=== PATIENT | male | born 1980 | race African-American/Black ===

== ENCOUNTER 2020-09-17 00:55 | Emergency (ER) | END 2020-09-17 01:22 | disposition left against medical advice (07) | LOC: ERS 00:55 | DX: Z53.21 Procedure and treatment not carried out due to patient leaving prior to being seen by health care provider (principal) ==

== ENCOUNTER 2020-09-18 03:03 | Observation (INO) | payer SELFPAY ==
[2020-09-18 03:38] LABS: #Lymphocytes 1.9 thou/uL (1.20-3.40); #Neutrophils 4.3 thou/uL (1.40-6.50); %Basophils 0.5 % (0.0-1.0); %Eosinophils 0.6 % (0.0-10.0); %Lymphocytes 26.6 % (21.0-51.0); %Neutrophils 59.4 % (42.0-75.0); Mean Corpuscular HGB CONC 34.2 g/dL (32.0-36.0); Mean Corpuscular Hemoglobin 31.2 pg (27.0-31.0); Mean Corpuscular Volume 91.4 fL (78.0-98.0); Mean Platelet Volume 8.5 fL (7.4-10.4); Platelet Count 213 thou/uL (130-400); RBC Distribution Width 12.2 % (11.5-14.5); Red Blood Cell (RBC) Count 4.79 mill/uL (4.70-6.10); White Blood Cell (WBC) Count 7.3 thou/uL (4.8-10.8)
[2020-09-18] MEDS ORDERED: Ketorolac Tromethamine 30 MG/ML VIAL ONE (03:42)
[2020-09-18] MEDS ORDERED: Ondansetron PF 4 MG/2 ML Vial ONE (03:42)
[2020-09-18 04:00] LABS: Bilirubin Negative (Negative); Blood, Urine Negative (Negative); Clarity Clear (Clear); Glucose, Urine (Dipstick) Normal (Negative); Ketone, Urine Negative (Negative); Leukocyte Negative Leu/uL (Negative); Nitrite Negative (Negative); Protein, Urine (Dipstick) 10 mg/dL (Neg-Trace); pH, Urine 6.5 (5.0-9.0)
[2020-09-18 04:10] LABS: ALT (SGPT) 29 U/L (8-55); AST (SGOT) 25 U/L (5-34); Albumin 3.7 g/dL (3.5-5.0); Alkaline Phosphatase 67 U/L (40-110); Anion Gap 13 mmol/L (10-20); BUN (Urea Nitrogen) 7 mg/dL (8.9-20.6); Bilirubin, Total 1.2 mg/dL (0.2-1.2); Calc. Creatinine Clearance 0 mL/min (70-130); Calcium 8.6 mg/dL (7.8-10.44); Carbon Dioxide 23 mmol/L (22-29); Chloride 105 mmol/L (98-107); Glucose 157 mg/dL (70-105); Lipase 20 U/L (8-78); Potassium 3.7 mmol/L (3.5-5.1); Protein, Total 7.7 g/dL (6.0-8.3); Sodium 137 mmol/L (136-145)
[2020-09-18] MEDS ORDERED: Enoxaparin Sodium 60 MG/0.6 ML SYRINGE ONE (04:16)
[2020-09-18] MEDS ORDERED: Enoxaparin Sodium 100 MG/ML SYRINGE ONE (04:16)
[2020-09-18] MEDS ORDERED: Ondansetron PF 4 MG/2 ML Vial IVP PRN (05:07)
[2020-09-18] MEDS ORDERED: Calcium Carbonate 500 MG ChewTAB PO PRN (05:07)
[2020-09-18] MEDS ORDERED: Ondansetron ODT 4 MG TAB PO PRN (05:07)
[2020-09-18] MEDS ORDERED: Acetaminophen 325 MG TAB PO PRN (05:07)
--- NOTE | 2020-09-18 05:23 | PDOC.FPRHP ---
- History of Present Illness Chief Complaint: Abdominal Pain, N/V History of Present Illness: Patient is a 39-year-old male with past medical history of hypertension, hyperlipidemia, and diabetes presents with right lower quadrant that began suddenly 2 days ago. Pain sometimes radiates from the back to the front. The pa in was accompanied by persistent nausea and vomiting which prompted the patient to go to [facility] emergency department yesterday for evaluation. While there he was found on CT abdomen/pelvis to have a large wedge shaped perfusion defect & regional edema in right renal lower pole. The Perfusion defect extends to periphery of cortex. Patient was given Toradol and Dilaudid which relieved his pain. He was told he needed to be transferred but he left AMA due to his symptoms having resolved. Patient says his abdominal pain and vomiting returned earlier tonight and so decided to return to ER for further treatment. Patient was also diagnosed with COVID-19 yesterday. He denies constipation, diarrhea, fever, chills. Does endorse a cough and mild congestion that started around 09/13. He said he frequently gets the common cold this time of year and did not think he had COVID because he has been trying to stay isolated and wears a mask in public. Patient recently moved from [place], [place] and has not yet established a PCP in town. ED Course: Given Lovenox 160 mg, Toradol 15 mg, Zofran 8 mg in the ED. - Allergies/Adverse Reactions Allergies Allergy/AdvReac Type Severity Reaction Status Date / Time No Known Allergies Allergy Verified 09/18/20 06:28 - Home Medications Medication Instructions Recorded Confirmed Type Amlodipine [Norvasc] 5 mg PO BID 09/18/20 09/18/20 History Aspirin [Ecotrin Low Strength] 1 tab PO DAILY 09/18/20 09/18/20 History Rosuvastatin Calcium 40 mg PO DAILY 09/18/20 09/18/20 History cloNIDine [Catapres] 0.1 mg PO ASDIR 09/18/20 09/18/20 History metFORMIN HCl 500 mg PO BID 09/18/20 09/18/20 History - History PMHx: HTN, HLD, T2DM PSHx: denies FHx: Dad with CAD, Mother healthy, denies Cancer history Social: smokes 1/2 ppd, denies alcohol or illicit drug use - Review of Systems General: denies: fever/chills, fatigue Eyes: denies: vision changes ENT: reports: nasal congestion Respiratory: reports: cough. denies: shortness of breath Cardiovascular: denies: chest pain, palpitation, edema Gastrointestinal: reports: nausea, vomiting, abdominal pain. denies: diarrhea, constipation Genitourinary: denies: dysuria Skin: denies: rashes, lesions Musculoskeletal: denies: pain, swelling Neurological: denies: numbness, weakness - Vital signs BP: 109/70 HR: 87 RR: 18 Tmax: 98.3F Pox: 98% on RA Wt: 160 kg - Physical Exam Constitutional: NAD, awake, alert and oriented, well developed HEENT: normocephalic and atraumatic, EOMI, grossly normal vision, grossly normal hearing, MMM Neck: supple Chest: no-tender to palpation Heart: no edema Lungs: no respiratory distress, no retractions Abdomen: soft, non-tender, no masses/distention Musculoskeletal: normal structure Neurological: no focal deficit Skin: no rash/lesions Heme/Lymphatic: no unusual bruising or bleeding Psychiatric: normal mood and affect, intact recent and remote memory FMR H&P: Results - Labs Result Diagrams: 09/18/20 03:14 09/18/20 03:14 Lab results: WBC 7.3 thou/uL (4.8-10.8) 09/18/20 03:14 Hgb 15.0 g/dL (14.0-18.0) 09/18/20 03:14 Hct 43.8 % (42.0-52.0) 09/18/20 03:14 MCV 91.4 fL (78.0-98.0) 09/18/20 03:14 Plt Count 213 thou/uL (130-400) 09/18/20 03:14 Neutrophils % 59.4 % (42.0-75.0) 09/18/20 03:14 Sodium 137 mmol/L (136-145) 09/18/20 03:14 Potassium 3.7 mmol/L (3.5-5.1) 09/18/20 03:14 Chloride 105 mmol/L (98-107) 09/18/20 03:14 Carbon Dioxide 23 mmol/L (22-29) 09/18/20 03:14 BUN 7 mg/dL (8.9-20.6) L 09/18/20 03:14 Creatinine 0.88 mg/dL (0.7-1.3) 09/18/20 03:14 Glucose 157 mg/dL (70-105) H 09/18/20 03:14 Calcium 8.6 mg/dL (7.8-10.44) 09/18/20 03:14 Total Bilirubin 1.2 mg/dL (0.2-1.2) 09/18/20 03:14 AST 25 U/L (5-34) 09/18/20 03:14 ALT 29 U/L (8-55) 09/18/20 03:14 Alkaline Phosphatase 67 U/L (40-110) 09/18/20 03:14 Serum Total Protein 7.7 g/dL (6.0-8.3) 09/18/20 03:14 Albumin 3.7 g/dL (3.5-5.0) 09/18/20 03:14 Lipase 20 U/L (8-78) 09/18/20 03:14 Urine Ketones Negative mg/dL (Negative) 09/18/20 03:48 Urine Blood Negative (Negative) 09/18/20 03:48 Urine Nitrite Negative (Negative) 09/18/20 03:48 Ur Leukocyte Esterase Negative Yasmine/uL (Negative) 09/18/20 03:48 - Radiology Interpretation CT scan - abdomen Status: report reviewed by me (large wedge shaped perfusion defect & regional edema in right renal lower pole. Perfusion defect extends to periphery of cortex. Ground glass opacities in lower lung morrell.) FMR H&P: A/P - Problem List (1) Renal infarct Current Visit: Yes Status: Acute Code(s): N28.0 - ISCHEMIA AND INFARCTION OF KIDNEY (2) COVID-19 virus infection Current Visit: Yes Status: Acute Code(s): U07.1 - COVID-19 (3) Hypertension Current Visit: Yes Status: Acute Code(s): I10 - ESSENTIAL (PRIMARY) HYPERTENSION Qualifiers: Hypertension type: essential hypertension Qualified Code(s): I10 - Essential (primary) hypertension (4) Hyperlipidemia Current Visit: Yes Status: Acute Code(s): E78.5 - HYPERLIPIDEMIA, UNSPECIFIED Qualifiers: Hyperlipidemia type: mixed hyperlipidemia Qualified Code(s): E78.2 - Mixed hyperlipidemia (5) Type 2 diabetes mellitus Current Visit: Yes Status: Acute Qualifiers: Diabetes mellitus exterminator helper insulin use: without residential use Diabetes mellitus complication status: with hyperglycemia Qualified Code(s): E11.65 - Type 2 diabetes mellitus with hyperglycemia - Plan Renal Infarct -therapeutic Lovenox 160 mg started in ED, will continue daily with consideration of transitioning to Eliquis for residential -needs 6 months of anticoagulation -CT abd pelvis: large wedge shaped perfusion defect & regional edema in right renal lower pole. Perfusion defect extends to periphery of cortex -consult Nephro in AM -s/p Toradol in ED for pain, no current pain -UA normal, WBC 7.3, BUN 7, Cr 0.88 Intractable Nausea & Vomiting -likely 2/2 pain from above -Zofran prn COVID19 -patient with cough and mild congestion beginning on 09/13, no other symptoms -continue to monitor respiratory status, currently stable on room air -establish PCP as patient may be candidate for outpatient monoclonal antibody therapy Tobacco Abuse -smokes 1/2 ppd -smoking cessation counseling T2DM -continue home Metformin 500 mg BID HTN -normotensive in ED -continue home meds Amlodipine 5 mg BID & Clonidine 0.1 mg prn HLD -continue home Rosuvastatin 40 mg daily Diet: Heart Healthy VTE: th. Lovenox Code status: FULL PCP: [facility] ([place], [place]), wants to establish in [place], [place] Dispo: Stable, admit to observation on medical unit. Anticipate LOS <48 hrs. Addendum - Attending - Attending Attestation Date/Time: 09/18/20 [id number] I personally evaluated the patient and discussed the management with Dr. Santiago. I agree with the History, Examination, Assessment and Plan documented above with any addition or exceptions noted below. Nephro consult for management recommendations. could possibly d/c today on PO anticoagulants unless additional evaluation needed. abdominal pain and tenderness resolved as has nausea.
[2020-09-18 05:29] VITALS: BMI 39.6
--- NOTE | 2020-09-18 06:36 | PDOC.FM ---
- Objective Vital Signs & Weight: Vital Signs (12 hours) Temp Pulse Resp BP Pulse Ox 09/18/20 05:10 97.9 F 83 18 149/65 H 95 Weight Weight 147.78 kg Result Diagrams: 09/18/20 03:14 09/18/20 03:14 Dx/Plan - Plan Plan: Renal Infarct -will continue daily th Aleksandra and transition to OP anticoag. Will discuss Eliquis vs Warfarin with pt today -needs 6 months of anticoagulation -CT abd pelvis: large wedge shaped perfusion defect & regional edema in right renal lower pole. Perfusion defect extends to periphery of cortex -consult Nephro in AM -monitor pain, has tyl ordered currently Nausea & Vomiting -From pain vs covid -responsive to zofran. Zofran prn COVID19 Likely cause of renal infarct -patient with cough and mild congestion beginning on 09/13, no other symptoms -continue to monitor respiratory status, currently stable on room air -establish PCP as patient may be candidate for outpatient monoclonal antibody therapy Tobacco Abuse -smokes 1/2 ppd -smoking cessation counseling T2DM -continue home Metformin 500 mg BID HTN -normotensive in ED -continue home meds Amlodipine 5 mg BID & Clonidine 0.1 mg prn -continue to monitor vitals HLD -continue home Rosuvastatin 40 mg daily Diet: Heart Healthy VTE: th. Lovenox Code status: FULL PCP: [facility] ([place]), wants to establish in [place], [place] Dispo: Stable, admit to observation on medical unit. Anticipate LOS <48 hrs.
[2020-09-18] MEDS ORDERED: FLU VACC QS2020-21(6MOS UP)/PF 60 MCG/0.5 ML SYRINGE IM ONE (06:45)
[2020-09-18] MEDS ORDERED: Rosuvastatin 20 MG TAB PO SCH (09:00)
[2020-09-18] MEDS ORDERED: Enoxaparin Sodium 80 MG/0.8 ML SYRINGE SC SCH (09:00)
[2020-09-18] MEDS ORDERED: Aspirin 81 mg Enteric Coated Tablet PO SCH (09:00)
[2020-09-18] MEDS ORDERED: Amlodipine 5 MG TAB PO SCH (09:00)
[2020-09-18] MEDS: metFORMIN 500 MG TAB PO SCH ×2 (09:22→11:57)
[2020-09-18 12:58] VITALS: BP 111/70; TEMP 99.1
--- NOTE | 2020-09-19 22:08 | DIS ---
DATE OF ADMISSION: 09/18/2020 DATE OF DISCHARGE: 09/18/2020 RESIDENT: Radha Garcia MD ADMITTING ATTENDING: Dr. Gerald Park. DISCHARGE ATTENDING: Dr. Gerald Park. CONSULTS: None. PROCEDURES: None. PRIMARY DIAGNOSES: 1. Renal infarct. 2. COVID positive. SECONDARY DIAGNOSES: 1. Hypertension. 2. Type 2 diabetes. 3. Hyperlipidemia. 4. Tobacco abuse. DISCHARGE MEDICATIONS: 1. Eliquis 10 mg p.o. b.i.d. x7 days, then 5 mg b.i.d. x6 months. 2. Metformin 500 mg p.o. b.i.d. 3. Amlodipine 5 mg p.o. b.i.d. 4. Clonidine 0.1 mg p.o. p.r.n. for SBP greater than 180 or DBP greater than 110. 5. Rosuvastatin p.o. daily. 6. Aspirin 81 mg p.o. daily. DISCONTINUED MEDICATIONS: None. HISTORY OF PRESENT ILLNESS/HOSPITAL COURSE: This is a 39-year-old male with past medical history of hypertension, hyperlipidemia, and diabetes, who presented with right lower quadrant pain that began suddenly 2 days ago. The pain radiated from back to front and was accompanied by nausea and vomiting, which prompted him to go to [facility] Emergency Department for evaluation. While there, CT of abdomen/pelvis found a large wedge-shaped perfusion defect and regional edema in the right renal lower pole that extended to the periphery of the cortex. Differential diagnosis based on CTA included pyelonephritis, renal infarct, renal lymphoma. The patient was transferred to our ED and was found to be COVID positive. He was started on therapeutic Lovenox in the ED and then was planned to transition to Eliquis. He was educated on Eliquis versus Coumadin and was agreeable to Eliquis. He was instructed to investigate with his insurance since it is [employer] to see if they would cover the cost. He decided he would do Eliquis, but prior to confirming with his insurance whether that they would cover it, he stated he had something with his family he had to do and he needed to leave right away, so he was discharged after education and emphasis on the importance of continuing this anticoagulant for 6 months. During his stay, Nephrology was curb sided and they stated that given his normal renal function, despite a supposed renal infarct of 2 days, there was nothing for them to do. The diagnosis of pyelonephritis did not fit clinically and given his lack of fever or elevated white count. The diagnosis of lymphoma was unlikely given the wedge shape of the filling defect. Nephrology recommended discussing the possible renal infarct with CV surgery. CV surgery was curb sided and stated that this was not an issue, they would manage. As for his COVID, his chest x-ray was clear, he never had an oxygen requirement, and his nausea and vomiting were receptive to Zofran. DISPOSITION: Stable. DISCHARGE INSTRUCTIONS: 1. Location: Home. 2. Diet: Heart healthy, low sodium. 3. Activity: As tolerated, no restrictions. 4. Followup: The patient is encouraged to follow up with his PCP in 7 to 10 days. Job ID: [id number]
== END 2020-09-18 15:42 | disposition home or self-care (01) ==
LOC: ERS 03:03 → T4-A 04:20
PROVIDERS: ADMIT Family Medicine; ATTEND Family Medicine
DX: N28.0 Ischemia and infarction of kidney (principal); U07.1 COVID-19; I10 Essential (primary) hypertension; E78.5 Hyperlipidemia, unspecified; E11.65 Type 2 diabetes mellitus with hyperglycemia; F17.210 Nicotine dependence, cigarettes, uncomplicated; Z79.82 Long term (current) use of aspirin; Z79.84 Long term (current) use of oral hypoglycemic drugs; Z79.899 Other long term (current) drug therapy
CPT/HCPCS: 36416; 80053; 81003; 83690; 85025; 96372; 96374; 96375; G0378; J1650; J1885; J2405